=== PATIENT | male | born 1990 | race Caucasian/White ===

== ENCOUNTER 2021-01-06 13:50 | Emergency (ER) | payer OTHER ==
[~2021-01-06] VITALS: Ht 182.9 cm; Wt 93.0 kg
[2021-01-06 14:00] VITALS: BP 120/56
--- NOTE | 2021-01-06 14:22 | NUR ---
NO NURSING INTERVENTIONS DONE, NO COMPLETE ASSESSMENT NEEDED.
[2021-01-06] MEDS ORDERED: SERT100T PO (14:35)
[2021-01-06 14:56] VITALS: BP 124/64
--- NOTE | 2021-01-06 14:57 | NUR ---
Patient discharged with v/s stable. Written and verbal after care instructions given and explained. Patient alert, oriented and verbalized understanding of instructions. Ambulatory with steady gait. All questions addressed prior to discharge. ID band removed. Patient advised to follow up with PMD. Rx of ZOLOFT 100MG PO BID given. Patient educated on indication of medication including possible reaction and side effects. Opportunity to ask questions provided and answered.
== END 2021-01-06 14:57 | disposition home or self-care (01) ==
LOC: MED 13:50
DX: F32.9 Major depressive disorder, single episode, unspecified (principal); Z71.6 Tobacco abuse counseling; F17.200 Nicotine dependence, unspecified, uncomplicated; F41.9 Anxiety disorder, unspecified; Z79.899 Other long term (current) drug therapy
CPT/HCPCS: 99281

== ENCOUNTER 2021-01-26 05:50 | Emergency (ER) | payer MEDICARE, OTHER ==
[~2021-01-26] VITALS: Ht 182.9 cm; Wt 98.0 kg
[~2021-01-26 05:50] MED LIST: SERT100T PO
[2021-01-26 06:08] VITALS: BP 130/75
--- NOTE | 2021-01-26 06:08 | NUR ---
TO BED AMBULATORY
--- NOTE | 2021-01-26 06:10 | NUR ---
30 yo m bib self with c/c of sharp back pain 3/10 right lower side just above buttock. rads to left lower side of back. pt states he broke his back in 2009, now has a buldging disk. states his legs have been feeling weak for about 4-5 days, states its to the point he falls to ground. pt states he feels he is dragging his legs. bilat LE pull weak, push bilat strong. left leg lift is not as high as the right leg. laying down helps with pain . takes gabapentin for pain. when pt falls he said he feels 10/10 back pain. also reports testicular pain 4/10. [place] treated for chlamydia and epididymitis, states testicles still hurt. pt states the urine changes he noted was a strong foul odor. denies hx, rx and allerg surg: l arm tendon transplant and skin grafts
--- NOTE | 2021-01-26 06:20 | NUR ---
garry collected and given to sg from lab.
[2021-01-26 06:59] LABS: BASOPHILS % (AUTO) 0.3 % (0.0-2.0); EOSINOPHILS # (AUTO) 0.1 K/uL (0-0.4); EOSINOPHILS % (AUTO) 1.2 % (0.0-4.0); HEMATOCRIT 42.6 % (36-52); HEMOGLOBIN 14.3 g/dL (12.0-18.0); LYMPHOCYTES # (AUTO) 2.2 K/uL (2.0-11.5); LYMPHOCYTES % (AUTO) 26.9 % (20.5-51.1); MEAN CORPUSCULAR HEMOGLOBIN 30 pg (27-31); MEAN CORPUSCULAR HGB CONC 34 g/dL (33-37); MEAN CORPUSCULAR VOLUME 89.5 fL (80-94); MONOCYTES # (AUTO) 0.8 K/uL (0.8-1.0); MONOCYTES % (AUTO) 9.3 % (1.7-9.3); NEUTROPHILS % (AUTO) 62.3 % (42.2-75.2); PLATELET COUNT (AUTO) 226 K/uL (140-450); RED BLOOD CELL COUNT(AUTO) 4.76 MIL/uL (4.20-6.10); RED CELL DISTRIBUTION WIDTH 13.4 % (11.6-13.7); WHITE BLOOD COUNT (AUTO) 8.1 K/uL (4.8-10.8)
[2021-01-26] MEDS ORDERED: LIDOCAINE 5% 1 EA PATCH TP STA (07:07)
[2021-01-26 07:08] LABS: CARBON DIOXIDE 24.9 mmol/L (21-32); POTASSIUM 3.9 mmol/L (3.5-5.1)
[2021-01-26] MEDS ORDERED: MORPHINE SULFATE 4 MG/ML SYR IVP ONE (07:10)
--- NOTE | 2021-01-26 07:19 | NUR ---
report given to gisel ryan. transfer of care at this time.
--- NOTE | 2021-01-26 07:30 | NUR ---
received pt in [facility] a[facility]. c/o low back pain radiating down right leg. iv noted to left ac #20guage SL. no acute distress noted. safety maintained
[2021-01-26] MEDS ORDERED: IBUP-2809 PO (09:07)
[2021-01-26] MEDS ORDERED: LID5T TP (09:07)
[2021-01-26] MEDS ORDERED: DOXY-487 PO (09:07)
[2021-01-26] MEDS ORDERED: TRAM50TA3 PO (09:08)
[2021-01-26 09:18] VITALS: BP 115/70
--- NOTE | 2021-01-26 09:30 | NUR ---
pt verbalizes dc instructions. no aute distress noted. iv removed no active bleeding noted. stable on dc
[2021-01-26 14:44] LABS: APPEARANCE,URINE CLEAR (CLEAR); BILIRUBIN,URINE NEGATIVE (NEGATIVE); BLOOD, URINE NEGATIVE (NEGATIVE); COLOR,URINE YELLOW (YELLOW); LEUKOCYTE ESTERASE ,URINE NEGATIVE (NEGATIVE); NITRITE, URINE NEGATIVE (NEGATIVE); UGLUCOSE NEGATIVE (NEGATIVE)
== END 2021-01-26 09:18 | disposition home or self-care (01) ==
LOC: MED 05:50
DX: N45.1 Epididymitis (principal); Z20.822 Contact with and (suspected) exposure to COVID-19; M54.50 Low back pain, unspecified; G89.29 Other chronic pain; Z79.899 Other long term (current) drug therapy
CPT/HCPCS: 36415; 72110; 76870; 80048; 81003; 85025; 87426; 96374; 99285; J2270; Q0092

== ENCOUNTER 2021-02-25 14:53 | Emergency (ER) | payer MEDICAID, OTHER ==
[~2021-02-25] VITALS: Ht 182.9 cm; Wt 94.8 kg
[~2021-02-25 14:53] MED LIST changes: +DOXY-487 PO; +IBUP-2809 PO; +LID5T TP; +TRAM50TA3 PO
[2021-02-25 14:58] VITALS: BP 147/95
--- NOTE | 2021-02-25 15:03 | NUR ---
PT IN CHAIR A
--- NOTE | 2021-02-25 15:21 | NUR ---
NERY BULL EVALUATING PT IN CHAIR A
[2021-02-25] MEDS ORDERED: GABA600T11 PO (15:31)
[2021-02-25] MEDS ORDERED: DOXY-565 PO (15:31)
--- NOTE | 2021-02-25 15:36 | NUR ---
PT SEEN AND D/C BY NERY BULL, NO NURSING INTERVENTIONS PROVIDED
--- NOTE | 2021-02-25 15:37 | NUR ---
Patient discharged with v/s stable. Written and verbal after care instructions ABOUT NEUROPATHIC PAIN AND EPIDIDYMITIS given and explained. Patient alert, oriented and verbalized understanding of instructions. Ambulatory with steady gait. All questions addressed prior to discharge. ID band removed. Patient advised to follow up with PMD. Rx of DOXYCLYCLINE MONOHYDRATE AND GABAPENTIN given. Patient educated on indication of medication including possible reaction and side effects. Opportunity to ask questions provided and answered.
== END 2021-02-25 15:37 | disposition home or self-care (01) ==
LOC: MED 14:53
DX: G62.9 Polyneuropathy, unspecified (principal); F41.9 Anxiety disorder, unspecified; Z79.899 Other long term (current) drug therapy; Z76.0 Encounter for issue of repeat prescription
CPT/HCPCS: 99283

== ENCOUNTER 2021-03-03 16:31 | Emergency (ER) | payer MEDICAID ==
[~2021-03-03] VITALS: Ht 185.4 cm; Wt 95.3 kg
[~2021-03-03 16:31] MED LIST changes: +DOXY-565 PO; +GABA600T11 PO
[2021-03-03 17:08] VITALS: BP 142/77
--- NOTE | 2021-03-03 17:14 | NUR ---
JING. HANED ON URINE CUP.
--- NOTE | 2021-03-03 18:10 | NUR ---
PT AMBULATED TO ER BED 10
--- NOTE | 2021-03-03 18:20 | NUR ---
US AT BEDSIDE
--- NOTE | 2021-03-03 18:21 | NUR ---
ULTRASOUND AT BEDSIDE.
--- NOTE | 2021-03-03 18:22 | NUR ---
URINE COLLECTED AND IN THE LAB.
--- NOTE | 2021-03-03 18:22 | NUR ---
30 Y/O MALE C/O R TESTICULAR PAIN 8/10 FOR THE PAST 10 DAYS. NAUSEA FOR THE PAST 3 DAYS, GREEN BM FOR THE LAST 2 DAYS. HE WAS HERE FOR THE SAME S/S LAST WEEK. SONAL
[2021-03-03 18:36] LABS: APPEARANCE,URINE CLEAR (CLEAR); BILIRUBIN,URINE NEGATIVE (NEGATIVE); BLOOD, URINE NEGATIVE (NEGATIVE); COLOR,URINE YELLOW (YELLOW); LEUKOCYTE ESTERASE ,URINE NEGATIVE (NEGATIVE); NITRITE, URINE NEGATIVE (NEGATIVE); PH,URINE 5.5 (5.0-9.0); UGLUCOSE NEGATIVE (NEGATIVE)
--- NOTE | 2021-03-03 19:21 | NUR ---
GAVE REPORT TO BEATRIS HICKMAN.
--- NOTE | 2021-03-03 19:45 | NUR ---
30 YO/M BIB SELF W C/O R TESTICULAR PAIN X1 WEEK WORSESNING PAST 3 DAYS 11/11. PT REPORTS HAVING SAME SYMPTOMS IN SEPTEMBER AND DIAGNOSED W CHLAMYDIA AND EPIDIDYMIS WHICH RESOLVED BUT PAIN HAS STARTED AGAIN. PT PT ALSO REPORTS SOME BURNING URINATION, NO OTHER URINARY SYMPTOMS. PT DENIES ANY TESTICULAR SWELLING, REDNESS WARMTH. DENIES ABDNORMAL PENILE DISCHARGE, FEVERS, N/V/D. PATIENT LAYING SUPINE IN BED W BREATHING EVEN AND UNLABORED. NAD NOTED, WILL CONTINUE TO MONITOR. VSS PMH:DENIES NKA
[2021-03-03] MEDS ORDERED: LEVO-315 PO (19:46)
--- NOTE | 2021-03-03 20:23 | NUR ---
PER JONN PT CAN HAVE MOTRIN FOR PAIN, PT REFUSED, PT REPORTS HE WILL JUST GET THE ANTIBIOTICS AND DC PAPERWORK.
[2021-03-03 20:26] VITALS: BP 125/59
--- NOTE | 2021-03-03 20:26 | NUR ---
Patient discharged with v/s stable. Written and verbal after care instructions given and explained. Patient alert, oriented and verbalized understanding of instructions. Ambulatory with steady gait. All questions addressed prior to discharge. ID band removed. Patient advised to follow up with PMD. Rx of LEVOFLOXACIN given. Patient educated on indication of medication including possible reaction and side effects. Opportunity to ask questions provided and answered.
== END 2021-03-03 20:26 | disposition home or self-care (01) ==
LOC: MED 16:31
DX: N50.811 Right testicular pain (principal); Z79.899 Other long term (current) drug therapy; Z79.891 Long term (current) use of opiate analgesic; Z79.1 Long term (current) use of non-steroidal anti-inflammatories (NSAID); Z79.2 Long term (current) use of antibiotics
CPT/HCPCS: 76870; 81003; 99284; Q0092

== ENCOUNTER 2022-02-03 11:10 | Emergency (ER) | payer MEDICAID ==
[~2022-02-03] VITALS: Ht 182.9 cm; Wt 94.3 kg
[~2022-02-03 11:10] MED LIST changes: -DOXY-565 PO; +LEVO-481 PO
[2022-02-03 11:24] VITALS: BP 146/69
--- NOTE | 2022-02-03 13:06 | NUR ---
PATIENT ELOPED FROM FACILITY. DISCHARGE INSTRUCTIONS NOT GIVEN TO PATIENT. DR. BULL NOTIFIED.
== END 2022-02-03 13:06 | disposition left against medical advice (07) ==
LOC: MED 11:10
DX: M54.50 Low back pain, unspecified (principal)
CPT/HCPCS: 99281